=== PATIENT | female | born 1950 | race Asian ===

== ENCOUNTER 2025-07-01 10:20 | Outpatient (AMB) | payer MEDICARE, SELFPAY ==
--- NOTE | 2025-07-01 10:35 | MHC.PC.OV ---
Vital Signs 07/01/25 10:42 Height 5 ft 4.96 in Weight 155 lb 6 oz BMI 25.9 BP 118/64 Blood Pressure Location Rt brachial Position Sitting Respiration 14 Pulse 66 Pulse Source Pulse Oximeter Temp 98.2 F Temp Source Oral Pulse Oximetry (%) 96 Oxygen Delivery Method Room Air Intake Visit Reasons: est care Intake Note: New patient visit Cloth Measurer Required: No Allergies No Known Allergies Allergy (Verified 07/01/25 10:40) Tobacco use date assessed: 07/01/25 Fall risk assessment: No Falls in past year Last assessed Fall Risk: 07/01/25 Dental Screening Dental Screen Date: 07/01/25 Did you have a dental visit in the last 12 months?: No Did you have a dental problem in the last 6 months where you did not have access to dental care?: No Was dental information given to patient?: Patient has dentist HPI HPI Comments History of Present Illness Details The patient is a 74 year old female with a past medical history of hyperlipidemia, back pain, knee pain, presenting to [facility]. Patient has a history of hyperlipidemia. Has been on but has been out of lipitor 40mg. She moved from [place] in January She has back, knee and leg pain and requests a referral to physical therapy. No particular injury Patient declines mammography, colon cancer screening, DXA s/p hysterectomy ROS CONSTITUTIONAL: Denies weight loss, fever and chills. HEENT: Denies changes in vision and hearing. RESPIRATORY: Denies SOB and cough. CV: Denies palpitations and CP GI: Denies abdominal pain, nausea, vomiting and diarrhea. : Denies dysuria and urinary frequency. MSK: Denies new myalgia and joint pain. SKIN: Denies rash and pruritus. NEUROLOGICAL: Denies headache PSYCHIATRIC: Denies recent changes in mood. PHYSICAL EXAM: GENERAL: Alert and oriented x 3. NAD EYES: EOMI. Anicteric. HENT: Moist mucous membranes. No scleral icterus. No cervical lymphadenopathy. LUNGS: Clear to auscultation bilaterally. CARDIOVASCULAR: Regular rate and rhythm. No murmur. No JVD. ABDOMEN: Soft, non-tender +bs EXTREMITIES: No edema. Non-tender. SKIN: No rashes or lesions. Warm. NEUROLOGIC: No focal neurological deficits. CN II-XII grossly intact PSYCHIATRIC: Cooperative. Appropriate mood and affect [facility] Surgical History H/O: hysterectomy Family History Sister Diabetes Social History Housing: Apartment Alcohol intake: never Patient Tobacco Use Status: Never used Tobacco e-Cigarette/Vaping Use: Never Used Second Hand Smoke Exposure: No service: No Current occupational status: retired Cognitive needs: No Hearing needs: No Vision needs: No Questionnaire PHQ-9 Over the last 2 weeks, how often have you been bothered by any of the following problems? 1. Little interest or pleasure in doing things: not at all 2. Feeling down, depressed, or hopeless: not at all 3. Trouble falling or staying asleep, or sleeping too much: not at all 4. Feeling tired or having little energy: not at all 5. Poor appetite or overeating: not at all 6. Feeling bad about yourself - or that you are a failure or have let yourself or your family down: not at all 7. Trouble concentrating on things, such as reading the newspaper or watching television: not at all 8. Moving or speaking so slowly that other people could have noticed. Or the opposite - being so fidgety or restless that you have been moving around a lot more than usual: not at all 9. Thoughts that you would be better off or of hurting yourself in some way: not at all Total score: 0 Depression Screening Interpretation: Negative Depression Screening Done: Yes 35937 - PHQ-9 Billing: Yes Source: Developed by Drs. Amos Seay, Harmony Jones, Willie Granados and colleagues, with an educational lana from [employer]. Thrive Questionnaire Date Thrive assessed: 07/01/25 I am a: Patient What is your living situation today?: I have a steady place to live Within the past 12 months, did the food you bought not last and you didn't have the money to get more?: Never true Within the past 12 months, did you worry whether your food would run out before you got money to buy more?: Never true Do you have trouble paying for medicines?: No Do you have trouble getting transportation to medical appointments?: No Do you have trouble paying your heating and electricity bill?: No Do you have trouble taking care of your child, family member or friend?: No Do you have trouble with day-to-day activities such as bathing, preparing meals, shopping, managing finances, etc.?: No Are you currently unemployed and looking for a job?: No Are you interested in more education?: No Please select the resources that you would like help with: None Currently or been in a relationship where the following occur: No concerns reported THRIVE Score: 0 AUDIT C Alcohol Use Questionnaire (AUDIT-C) 1. How often do you have a drink containing alcohol?: Never 3. How often do you have six or more drinks on one occasion?: Never Total Score: 0 AILYN-7 AMB Questionnaire AILYN-7 Feeling nervous, anxious, or on edge: 0 = Not at all Not being able to stop or control worryin = Not at all Worrying too much about different things: 0 = Not at all Trouble relaxin = Not at all Being so restless that it is hard to sit still: 0 = Not at all Becoming easily annoyed or irritable: 0 = Not at all Feeling afraid as if something awful might happen: 0 = Not at all Total AILYN-7 score (0-4 normal; 5-9 mild; 10-14 moderate; 15-21 severe): 0 Source: Developed by Drs. Amos Seay, Harmony Jones, Willie Granados and colleagues, with an educational lana from [employer]. Physical exam (Primary Care) Vital Signs: Last Vital Signs Temp 98.2 F 07/01/25 10:42 Pulse 66 07/01/25 10:42 Resp 14 07/01/25 10:42 BP 118/64 07/01/25 10:42 Pulse Ox 96 07/01/25 10:42 Oxygen Delivery Method Room Air 07/01/25 10:42 BMI result Body Mass Index 25.9 PHQ-9: PHQ-9 Score PHQ-9: Total score 0 07/01/25 10:36 Depression Screening Interpretation: Negative Currently or been in a relationship where the following occur: No concerns reported Coding Level of Care Code New Pt Level 4 (37016) Complex EM visit Add On G2211 Diagnoses Encounter to establish care Z76.89 Hyperlipidemia, unspecified hyperlipidemia type E78.5 Hyperlipidemia type: unspecified Elevated glucose R73.09 Chronic bilateral low back pain, unspecified whether sciatica present M54.50; G89.29 Back pain location: low back pain Chronicity: chronic Back pain laterality: bilateral Sciatica presence: unspecified whether sciatica present Additional Codes PHQ-9 - 52091 - PHQ-9 Billing: Yes ([id number]) Assessment & Plan Assessment & Plan (1) Encounter to establish care: Code(s): Z76.89 - Persons encountering health services in other specified circumstances Category: Medical (2) Hyperlipidemia: Code(s): E78.5 - Hyperlipidemia, unspecified Category: Medical Qualifiers: Hyperlipidemia type: unspecified Qualified Code(s): E78.5 - Hyperlipidemia, unspecified (3) Elevated glucose: Code(s): R73.09 - Other abnormal glucose Category: Medical (4) Back pain: Code(s): M54.9 - Dorsalgia, unspecified Category: Medical Qualifiers: Back pain location: low back pain Chronicity: chronic Back pain laterality: bilateral Sciatica presence: unspecified whether sciatica present Qualified Code(s): M54.50 - Low back pain, unspecified; G89.29 - Other chronic pain Plan 74 year old to establish care Past medical, surgical, social reviewed hld-restart lipitor. Labs ordered Declines mammo, colon cancer screening Orders: Orders TSH reflex Free T4 Today E78.5 - Hyperlipidemia, unspecified, M54.9 - Dorsalgia, unspecified, M79.606 - Pain in leg, unspecified, R73.09 - Other abnormal glucose, Z13.0 - Encounter for screening for diseases of the blood and blood-forming organs and certain disorders involving the immune mechanism, Z76.89 - Persons encountering health services in other specified circumstances Vitamin B12 and Folate Today E78.5 - Hyperlipidemia, unspecified, M54.9 - Dorsalgia, unspecified, M79.606 - Pain in leg, unspecified, R73.09 - Other abnormal glucose, Z13.0 - Encounter for screening for diseases of the blood and blood-forming organs and certain disorders involving the immune mechanism, Z76.89 - Persons encountering health services in other specified circumstances Complete Blood Count Auto Diff Today E78.5 - Hyperlipidemia, unspecified, M54.9 - Dorsalgia, unspecified, M79.606 - Pain in leg, unspecified, R73.09 - Other abnormal glucose, Z13.0 - Encounter for screening for diseases of the blood and blood-forming organs and certain disorders involving the immune mechanism, Z76.89 - Persons encountering health services in other specified circumstances Comprehensive Met. Panel Today E78.5 - Hyperlipidemia, unspecified, M54.9 - Dorsalgia, unspecified, M79.606 - Pain in leg, unspecified, R73.09 - Other abnormal glucose, Z13.0 - Encounter for screening for diseases of the blood and blood-forming organs and certain disorders involving the immune mechanism, Z76.89 - Persons encountering health services in other specified circumstances Lipid Panel Today E78.5 - Hyperlipidemia, unspecified, M54.9 - Dorsalgia, unspecified, M79.606 - Pain in leg, unspecified, R73.09 - Other abnormal glucose, Z13.0 - Encounter for screening for diseases of the blood and blood-forming organs and certain disorders involving the immune mechanism, Z76.89 - Persons encountering health services in other specified circumstances Hemoglobin A1c Today E78.5 - Hyperlipidemia, unspecified, M54.9 - Dorsalgia, unspecified, M79.606 - Pain in leg, unspecified, R73.09 - Other abnormal glucose, Z13.0 - Encounter for screening for diseases of the blood and blood-forming organs and certain disorders involving the immune mechanism, Z76.89 - Persons encountering health services in other specified circumstances PT Evaluation and Treatment Today M25.569 - Pain in unspecified knee, M54.9 - Dorsalgia, unspecified Medications: New atorvastatin (Lipitor) 40 mg PO BEDTIME 90 tabs 1RF
[2025-07-01 10:42] VITALS: BP 118/64; PULSE 66; RESP 14; TEMP 36.8; O2SAT 96; BMI 25.9
--- OUTSIDE RECORDS SUMMARY | 2025-07-01 10:58 | XMS_ITS | Encounter Summary ---
Author Organization [facility] Address [address] [place] [id number] Care Team Providers Care Thaw Shed Heater Tender Name Role Phone Elodia Archibald MD Primary Care Provider + Elodia Archibald MD Unavailable + Elodia Archibald MD Unavailable + Shruthi Zamudio RN Unavailable [phone] Chio Galvin [facility] [place]available [phone] Reason for Visit * Reason Comments Medication Refill Encounter Details Date Type Department Care Team (Late st Contact Info) Description 01/08/2021 Refill [facility] Internal Medicine [address] [address] Elodia Archibald MD [address] [place] [id number] Other hyperlipidemia Social History Tobacco Use Types Packs/Day Years Used Date Smoking Tobacco: Never Smokeless Tobacco: Never Alcohol Use Standard Drinks/Week Comments Never 0 (1 standard drink = 0.6 oz pur e alcohol) AUDIT-C Answer Date Recorded Q1: How often do you have a drink containing alc ohol? 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 No / Unsure 12/09/2020 8:37 AM EST documented as of this encounter Plan of Treatment Not on file documented as of this encounter Visit Diagnoses Diagnosis Other hyperlipidemia documented in this encounter Care Teams Thaw Shed Heater Tender Relationship Specialty Start Date End Date Elodia Archibald MD PCP - General Internal Medicine 01/16/20 Elodia Archibald MD [address] [phone] PCP - [facility] [place] Medicare Attributed 11/27/23 12/27/23 Elodia Archibald MD [address] [id number] PCP - [employer] Medicare Attributed 12/28/23 Shruthi Zamudio RN [address] [phone] [facility] Community Qa Tester 08/20/24 Chio Galvin LMSW [address] [place], [place] [phone] [facility] Community Qa Tester 03/17/25 documented as of this encounter
== END 2025-07-01 11:01 | disposition home or self-care (01) ==
LOC: HO.HMCFM 10:21
PROVIDERS: PCP Internal Medicine; Visit Provider Internal Medicine
DX: Z76.89 Persons encountering health services in other specified circumstances (principal); E78.5 Hyperlipidemia, unspecified; R73.09 Other abnormal glucose; M54.50 Low back pain, unspecified; G89.29 Other chronic pain

== ENCOUNTER → 2025-07-01 10:20 | Outpatient (BNVA) | payer MEDICARE, SELFPAY | PROVIDERS: PCP Internal Medicine; Visit Provider Internal Medicine | DX: Z76.89 Persons encountering health services in other specified circumstances (principal); E78.5 Hyperlipidemia, unspecified; R73.09 Other abnormal glucose; M54.50 Low back pain, unspecified; G89.29 Other chronic pain | CPT/HCPCS: 96127; 99202 ==

== ENCOUNTER 2025-07-01 11:26 | Outpatient (REF) | payer MEDICARE, SELFPAY ==
[2025-07-01 14:22] LABS: MANUAL DIFF FLAG NO
[2025-07-01 14:28] LABS: Hematocrit 41.1 % (37.0-47.0); Hemoglobin 13.4 g/dl (12.0-16.0); Imm Gran Abs Auto 0.02 X10*3/uL (0.00-0.03); Imm Gran Pct Auto 0.4 % (0.0-0.4); Lymphocytes Absolute Auto 1.8 X10*3/uL (1.2-4.9); Mean Corpuscular HGB Conc 32.6 g/dl (31.0-35.0); Mean Corpuscular Hemoglobin 29.9 pg (27.0-33.0); Mean Corpuscular Volume 91.7 fL (80.0-98.0); NRBC Abs Auto 0.000 X10*3/uL (0.0-0.012); NRBC Pct Auto 0.0 /100WBC (0.0-0.2); Platelet Count 231 X10*3/uL (160-400); Red Blood Count 4.48 X10*6/uL (4.20-5.50); White Blood Count 4.6 X10*3/uL (4.8-10.8)
[2025-07-01 15:04] LABS: Hemoglobin A1C 179.8430 umol/L; Total Hemoglobin (HGBA1C) 4333.1772 umol/L
[2025-07-01 15:05] LABS: Alanine Aminotransferase 49 U/L (0-31); Albumin Level 4.9 g/dL (3.5-5.0); Alkaline Phosphatase 82 U/L (39-117); Anion Gap 12 (12-20); Aspartate Amino Transferase 43 U/L (5-31); Blood Urea Nitrogen 15 mg/dL (9-16); Calcium 9.6 mg/dL (8.4-10.2); Carbon Dioxide 27 mmol/L (22-29); Chloride 105 mmol/L (96-108); Cholesterol 173 mg/dL (<200); Estimated Glomerular Filt Rate > 60; HDL Cholesterol 56 mg/dL (>40); Potassium 4.1 mmol/L (3.3-5.1); Sodium 140 mmol/L (135-145); Total Protein 7.7 g/dL (6.5-8.0); Triglycerides 107 mg/dL (<150)
[2025-07-01 15:21] LABS: Folate 19.8 ng/mL (> or = 4.0); Vitamin B12 > 2000 pg/mL (200-900)
== END 2025-07-01 11:27 | disposition home or self-care (01) ==
LOC: HO.WFDLDS 11:26
PROVIDERS: Visit Provider Internal Medicine
DX: Z13.0 Encounter for screening for diseases of the blood and blood-forming organs and certain disorders involving the immune mechanism (principal); E78.5 Hyperlipidemia, unspecified; R73.09 Other abnormal glucose; M54.9 Dorsalgia, unspecified; M79.606 Pain in leg, unspecified; Z76.89 Persons encountering health services in other specified circumstances
CPT/HCPCS: 36415; 80053; 80061; 82607; 82746; 83036; 84443; 85025